=== PATIENT | female | born 1995 | race Caucasian/White ===

== ENCOUNTER 2020-06-19 17:18 | Emergency (ER) | payer OTHER, SELFPAY ==
[2020-06-19 17:20] VITALS: BP 149/97; PULSE 95; RESP 18; TEMP 36.8; O2SAT 100
--- NOTE | 2020-06-19 17:32 | ED.FEMALEGU ---
HPI - Female Genitourinary General Chief complaint: Urogenital-Female Stated complaint: POS UTI Time Seen by Provider: 06/19/20 17:32 Source: patient and RN notes reviewed Mode of arrival: ambulatory Limitations: no limitations History of Present Illness HPI Narrative: 24-year-old female who [facility] with complaints of urinary frequency, burning, some suprapubic tenderness, and feelings of not fully emptying her bladder since yesterday. Patient denies any visual blood noted in urine,states urine is cloudy in appearance.Patient denies any nausea and vomiting, or any fevers, chills or fevers, has not taken any OTC AZO. MD elicited complaint: dysuria, UTI and pelvic pain (Mild suprapubic tenderness) Onset (ago): day(s) (1) Location of symptoms: suprapubic Severity: mild Female Urogenital Radiation: Suprapubic Severity scale (1-10): 2 Quality of pain: burning and aching Consistency: intermittent Vaginal discharge: none Vaginal bleeding: none Urinary symptoms: Dysuria and Frequency Exacerbating factors: none Relieving factors: none Associated symptoms: denies other symptoms Treatment prior to arrival: none Sexual activity: Yes Patient : No Date of Last Menstrual Period: 06/14/20 Related Data Home Medications Medication Instructions Recorded Confirmed norethindrone-e.estradiol-iron [Lo tablet PO DAILY 06/19/20 Loestrin Fe] Allergies Allergy/AdvReac Type Severity Reaction Status Date / Time No Known Allergies Allergy Verified 10/30/19 14:48 Review of Systems Review of Systems: Narrative: CONSTITUTIONAL: Denies fever, chills, or sweats. EYES: Denies visual changes, redness, or discharge. ENT: Denies rhinorrhea, congestion, sore throat, or otalgia. CARDIOVASCULAR: Denies chest pain, palpitations, or edema. RESPIRATORY: Denies cough or dyspnea. GASTROINTESTINAL: positive for mild suprapubic abdominal discomfort, no nausea, vomiting, or diarrhea. GENITOURINARY: Positive dysuria no visible hematuria. SKIN: Denies rash or itching. MUSCULOSKELETAL: Denies back pain, joint pain, or myalgia. NEUROLOGIC: Denies headache, numbness, or weakness. PSYCHIATRIC: Denies anxiety or depression. All systems reviewed & are unremarkable except as noted in HPI and below PMFSH Past Medical History Medical History (Updated 06/20/20 @ 09:05 by Christina Gutierrez NP) Mononucleosis Surgical History Surgical History (Updated 06/19/20 @ 17:50 by Christina Gutierrez NP) [place] teeth extracted Family History Family History (Updated 06/19/20 @ 17:49 by Christina Gutierrez NP) Other Hypertension Social History Social History (Updated 06/19/20 @ 17:50 by Christina Gutierrez NP) Smoking status: Never smoker Alcohol intake: current Living arrangements: with friend(s) Gender identity (if verbalized by the patient): Female Comments At time of signature, agree with nursing past medical, surgical, social and family history. There is no relevant family history pertinent to the presenting complaint Exam Narrative: Exam Narrative: GENERAL: Well-appearing, well-nourished, and in no acute distress. HEAD: Normocephalic, atraumatic. EYES: PERRLA and EOMI. ENT: Nares clear, no rhinorrhea or epistaxis. Mucous membranes moist. NECK: Supple. CHEST: Clear to auscultation. No respiratory distress. HEART: Regular rate and rhythm. No murmur heard. Normal peripheral pulses. ABDOMEN: Soft, mild tenderness suprapubic region, nondistended, normal active bowel sounds. Burning frequency of urination, feels like she is not completely emptying her bladder.denies any visual hematuria, no flank pain. EXTREMITIES: Normal range of motion. No edema. SKIN: Warm, dry, no rash. NEURO: No focal deficits. Alert and oriented x3. Course Vital Signs Vital signs: Vital Signs Temperature 36.8 C 06/19/20 17:20 Pulse Rate 95 06/19/20 17:20 Respiratory Rate 18 06/19/20 17:20 Blood Pressure 149/97 H 06/19/20 17:20 Pulse
== END 2020-06-19 17:55 | disposition home or self-care (01) ==
PROVIDERS: Emergency Provider Registered Nurse
DX: N39.0 Urinary tract infection, site not specified (principal); B96.20 Unspecified Escherichia coli [E. coli] as the cause of diseases classified elsewhere
CPT/HCPCS: 81003; 87077; 87086; 87088; 87186; 99213; G0463